=== PATIENT | male | born 1945 | race Caucasian/White ===

== ENCOUNTER 2025-04-11 07:06 | Day surgery (SDC) | payer MEDICARE ==
[2025-04-10 12:32] LABS: MEAN PLATELET VOLUME 7.4 FL (7.4-10.4); RED CELL DISTRIBUTION WIDTH 13.4 % (11.5-14.5)
[2025-04-10 12:44] LABS: INR 1.1 INR
[2025-04-10 12:58] LABS: CREATININE 1.35 MG/DL (0.60-1.10); TOTAL CARBON DIOXIDE 33.3 MMOL/L (24-32); eGFR 51 ML/MIN
[~2025-04-11] VITALS: Ht 172.7 cm; Wt 92.5 kg
[2025-04-11] VITALS (8 sets, daily range): BP systolic 108–136; BP diastolic 54–80; PULSE 48–55; RESP 12–16; TEMP 98.2; O2SAT 96–98
[~2025-04-11 07:06] MED LIST: AMLO5TAB PO; ASPI-1264 PO; ATOR10TA87 PO; CLOP75TA15 PO; FINA5TAB11 PO; METO-384 PO; MULT-38 PO; NITR0.4T51 SL; OMEG-128 PO; QUIN40TA36 PO; TAMS-55 PO; TICA90TA PO; TRIA1TAB3 PO
[2025-04-11] MEDS ORDERED: MIDAZolam 1mg/ml 10ml vial IV ONE (07:25)
[2025-04-11] MEDS ORDERED: amiodarone 150mg/dext, iso-os 100 ML IV ONE (07:25)
[2025-04-11] MEDS ORDERED: atropine 0.1mg/ml 10ml syringe IV ONE (07:25)
[2025-04-11] MEDS ORDERED: normal saline 1000ml 1,000 ML IV SCH (07:25)
[2025-04-11] MEDS ORDERED: morphine 10mg/ml inj. IV ONE (07:25)
[2025-04-11] MEDS ORDERED: AMLO10TA13 PO (07:29)
--- NOTE | 2025-04-11 07:29 | ELECTROCARDIOGRAPH REPORT ---
[facility] Test Date: 2025-04-11 Test Time: 07:28:38 Pat Name: DOMINIK SULTANA Department: [facility] Patient ID: [facility]-[id number] Room: Gender: M Director Digital: JUAN JOSÉ : 1945 Requested By: JAZZY WALTON Order Number: [id number] Reading MD: Dr. GORAN Walton Measurements Intervals [place] Rate: 61 P: 0 [place]: 0 QRS: 106 QRSD: 131 T: 26 QT: 469 QTc: 473 Interpretive Statements Atrial fibrillation Nonspecific intraventricular conduction delay Electronically Signed On 04-11-2025 17:04:[address] GORAN Walton Please click the below link to view image of tracing.
[2025-04-11] MEDS ORDERED: ATOR40TA72 PO (07:31)
[2025-04-11] MEDS ORDERED: LISI40TA20 PO (07:31)
[2025-04-11] MEDS ORDERED: TIRZ10PE3 (07:31)
[2025-04-11] MEDS ORDERED: METO50TA16 PO (07:32)
[2025-04-11] MEDS ORDERED: APIX5TAB3 PO (07:34)
[2025-04-11] MEDS ORDERED: MODA200T48 PO (07:34)
[2025-04-11] MEDS ORDERED: CLOP75TA34 PO (07:37)
[2025-04-11] MEDS ORDERED: AMIO200T76 PO (07:38)
[2025-04-11] MEDS ORDERED: fentaNYL/PF 50MCG/1 ML 2ML syringe ONE (08:12)
[2025-04-11] MEDS ORDERED: atropine 0.1mg/ml 10ml syringe ONE (08:12)
[2025-04-11] MEDS ORDERED: midazolam 1 mg/ML 2ml injection ONE (08:12)
--- NOTE | 2025-04-11 09:32 | ELECTROCARDIOGRAPH REPORT ---
[facility] Test Date: 2025-04-11 Test Time: 09:31:12 Pat Name: DOMINIK SULTANA Department: [facility] Patient ID: [id number] Room: Gender: M Professor Of Physics: : 1945 Requested By: JAZZY WALTON Order Number: [id number] Reading MD: Dr. GORAN Walton Measurements Intervals [place] Rate: 48 P: 40 [place]: 211 QRS: 85 QRSD: 135 T: 14 QT: 488 QTc: 436 Interpretive Statements Sinus bradycardia Nonspecific intraventricular conduction delay Electronically Signed On 04-11-2025 17:04:[address] GORAN Walton Please click the below link to view image of tracing.
--- NOTE | 2025-04-11 09:44 | CARDIOLOGY REPORT ---
DATE OF SERVICE: 04/11/2025 DICTATING PHYSICIAN: GORAN Walton MD ELECTRICAL CARDIOVERSION PRIMARY PHYSICIAN: Dr. Grady Howe. MERCHANDISE EXAMINER: GORAN Walton MD. INDICATION: The patient is a 79-year-old , retired ____, with hypertension, hyperlipidemia, sleep apnea, CAD, and history of coronary stenting. His history of AFib dates back to 02/21 when he was having a recanalization of [employer] SKATER of RCA at the [place], developed paroxysmal AFib, had cardioversion and was started on amiodarone. Then amiodarone was subsequently lowered to 100 mg p.o. per day and subsequently, the patient had a recurrence noted on 02/23/2025. After discussing risks, benefits, alternative treatment option, the patient prefers to proceed with electrical cardioversion. Temporarily, the amiodarone was increased to 200 p.o. b.i.d. until cardioversion. DESCRIPTION OF PROCEDURE: Anterior and posterior pads was used. 200 joules of synchronized biphasic electrical energy with anteroapical, it did not work with anteroposterior, did convert him to sinus rhythm. IMPRESSION: A 79-year-old male with paroxysmal atrial fibrillation, underwent successful electrical cardioversion to normal sinus rhythm. RECOMMENDATIONS: * Continue amiodarone 200 mg p.o. b.i.d. for one week and then 200 mg once a day. * Continue apixaban 5 mg p.o. daily and metoprolol 50 mg p.o. b.i.d. * Recommended diet, weight loss, and exercise program. GORAN Walton MD TID: [id number] RECEIPT: [id number] /[facility] cc: Grady Howe MD
== END 2025-04-11 10:45 | disposition home or self-care (01) ==
LOC: SSTAY O 07:06
PROVIDERS: ATTEND Internal Medicine Cardiovascular Disease
DX: I48.0 Paroxysmal atrial fibrillation (principal); I45.4 Nonspecific intraventricular block; I10 Essential (primary) hypertension; I25.10 Atherosclerotic heart disease of native coronary artery without angina pectoris; E78.5 Hyperlipidemia, unspecified; E66.9 Obesity, unspecified; G47.33 Obstructive sleep apnea (adult) (pediatric); Z79.01 Long term (current) use of anticoagulants; Z79.899 Other long term (current) drug therapy; Z95.5 Presence of coronary angioplasty implant and graft; Z98.890 Other specified postprocedural states; Z68.31 Body mass index [BMI] 31.0-31.9, adult
CPT/HCPCS: 36415; 80048; 85025; 85610; 92960; 93005; 99152; A4615; J2250; J3010; J7030; Z7610; 99153; J0461